=== PATIENT | female | born 1965 | race Caucasian/White ===

== ENCOUNTER 2018-09-19 13:50 | Emergency (ER) | payer OTHER ==
[2018-09-19] MEDS: IBUPROFEN 800 MG TAB PO (15:55)
== END 2018-09-19 16:35 | disposition home or self-care (01) ==
LOC: FTE 13:50
DX: S50.01XA Contusion of right elbow, initial encounter (principal); W18.39XA Other fall on same level, initial encounter; Y92.9 Unspecified place or not applicable
CPT/HCPCS: 73080; 73080-RT; 99283-25